=== PATIENT | male | born 1980 | race Caucasian/White ===

== ENCOUNTER 2017-06-25 15:56 | Outpatient (CLI) | payer OTHER | END 2017-06-25 15:57 | disposition home or self-care (01) | LOC: LABBT 15:56 | PROVIDERS: ATTEND Orthopaedic Surgery | DX: Z01.818 Encounter for other preprocedural examination (principal); S46.211A Strain of muscle, fascia and tendon of other parts of biceps, right arm, initial encounter ==

== ENCOUNTER → 2017-06-26 | Day surgery (SDC) | payer OTHER ==
[2017-06-25 16:20] VITALS: BMI 25.5
[~2017-06-26] MED LIST: Bupivacaine/Epinephrine 0.25% 30 ML VIAL ONE; CEFAZOLIN/Water 2 GM/20 ML SYRINGE ONE; Fentanyl 100 MCG/2 ML VIAL IV PRN; Fentanyl 100 MCG/2 ML VIAL ONE; HYDROcodone/Acetaminophen 5/325 mg Tablet PO PRN; Ketorolac Tromethamine 30 MG/ML VIAL IVP PRN; Lidocaine 1% (PF) 30 ML VIAL ONE; Meperidine HCl/PF 25 MG/ML VIAL ONE; Midazolam HCl 2 mg/2 ml Vial ONE; Ondansetron HCl/PF 4 MG/2 ML Vial IVP PRN; Promethazine HCl 25 MG/ML VIAL IM PRN; Ropivacaine 0.2% 550 ML 550 ML NERVE BLCK SCH; Zolpidem Tartrate 5 MG TAB PO PRN; traMADol HCl 50 MG TAB PO PRN
--- NOTE | 2017-06-26 14:27 | OP ---
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 POSTOPERATIVE DIAGNOSIS: Right shoulder degenerative superior labrum anterior and posterior tear wit h biceps instability. PROCEDURE PERFORMED: 1. Right shoulder arthroscopy with debridement and shaving of superior labral tear. 2. Open biceps tenodesis. SURGEON: Gold Blackwell M.D. SQUARE CUTTER: None. BLOOD LOSS: Minimal. COMPLICATIONS: None. ANESTHESIA: The patient did have a general anesthetic. He also had a preoperative block. IMPLANTS: Were 7 x 23 Ar[employer]rex Bio[employer]posite Bio-Tenodesis screw. CONDITION: He did go to the recovery room in stable condition. INDICATIONS: This is a 36-year-old active male, who has had symptoms and pain for nearly a year, off and on, in his right shoulder. MRI was not obtained and it was felt that he probably had a degenera tive SLAP tear, and at this time, options were talked about and he decided to go through diagnostic a rthroscopy and treatment as indicated. DESCRIPTION OF THE PROCEDURE: After appropriate consent forms were explained and signed, Azael was taken to the operating room, and at this time was given general anesthetic. Once the level of anesth esia was appropriate, he was rolled into the left lateral decubitus position with all bony prominence s well-padded. An axillary roll was placed underneath the left axilla, and the izaguirre bag was inflated to hold him in this position. The arm was then taken through full range of motion and was then susp ended with 15 pounds in standard arthroscopic fashion. The right shoulder and upper extremity were p repped and draped in the standard surgical fashion. Bony anatomic landmarks were drawn out and the s ubacromial space was infiltrated with Marcaine with epinephrine. Posterior portal was established an d the scope was placed into the shoulder joint. Anterior working portal was made using a needle-loca lization technique and diagnostic arthroscopy commenced. The articular surface of the humeral head a nd glenoid were in normal condition. Subscapularis was intact. The superior labrum was found to be degenerative and torn and unstable. Posterior and inferior labrum were intact. No loose bodies were noted in the axillary pouch. The rotator cuff insertion appeared to be intact. The biceps was able to be pulled out of the groove medially with a shaver, and at this time, it was decided that biceps tenodesis would be performed. An 18-gauge needle was used to place a suture through the biceps tendo n. We then used the arthroscopic scissors through the anterior portal to cut off the biceps from its superior labral insertion. Shaver and surface energy were used in debriding and coagulate the degen erative superior labrum and remnant of the biceps. Once this was done, the scope was removed and rep laced in the subacromial space. Lateral working portal was made. Copious bursa was removed from off the underlying rotator cuff. Soft tissue was removed from off the underside of the acromion, but no significant bony decompression was performed. At this time, we removed the scope. We then turned o ur attention to our open tenodesis. A 15-blade was used to incise down through skin. Bovie was used to coagulate any brisk venous bleeding. We then opened up our deltoid fascia sharply, dissected farhat n in line with the fibers to get to the underlying transverse humeral ligament. This was opened up, the biceps tendon pulled out any constrictions remaining, transverse humeral ligament was opened up s o that the biceps was completely free. We coagulated any brisk venous bleeding. We then sutured wit h a fiber loop followed by cutting off the intraarticular portion of the biceps tendon. We then plac ed our pin and used a 7-mm reamer to ream to a depth of 25 and placed and fixed our biceps tendon int o the hole in standard fashion. Again a 7 x 23 Bio[employer]posite Bio-Tenodesis screw was used for this. Sutures were tied over top of this and were then cut. We then thoroughly irrigated and dried our wou nd, which allowed our deltoid close upon itself. A running Vicryl was used to close our deltoid fasc ia, and 2-0 Vicryl and nylon sutures were used to close skin. A simple nylon stitches were then used to close the portals, and a bulky sterile dressing was applied. At this time, the patient was then awakened and taken to the recovery room in stable condition. All counts were correct at the end of t he case and he did receive preoperative IV antibiotics.
== END ==
LOC: SDC 08:17
PROVIDERS: ATTEND Orthopaedic Surgery
PROC: 0LS30ZZ Reposition Right Upper Arm Tendon, Open Approach (ICD-10-PCS; principal; 2017-06-26)
PROC: 0MM14ZZ Reattachment of Right Shoulder Bursa and Ligament, Percutaneous Endoscopic Approach (ICD-10-PCS; principal; 2017-06-26)
PROC: 0RHJ04Z Insertion of Internal Fixation Device into Right Shoulder Joint, Open Approach (ICD-10-PCS; principal; 2017-06-26)
DX: S43.401A Unspecified sprain of right shoulder joint, initial encounter (principal); S46.111A Strain of muscle, fascia and tendon of long head of biceps, right arm, initial encounter; Z88.6 Allergy status to analgesic agent; Z88.5 Allergy status to narcotic agent; Z90.49 Acquired absence of other specified parts of digestive tract; Z98.890 Other specified postprocedural states
CPT/HCPCS: 96374; A4306; C1713; J2001; J2175; J2250; J2795; J3010

== ENCOUNTER 2019-11-15 06:38 | Outpatient (CLI) | payer OTHER ==
[2019-11-15 18:04] LABS: SARS-CoV-2 MS2 Positive; SARS-CoV-2 N Gene Negative; SARS-CoV-2 S Gene Negative; SARS-CoV-2 orf1ab Negative
== END 2019-11-15 06:39 | disposition home or self-care (01) ==
LOC: LABBT 06:38
PROVIDERS: ATTEND Neurological Surgery
DX: Z01.812 Encounter for preprocedural laboratory examination (principal); Z11.59 Encounter for screening for other viral diseases; M54.12 Radiculopathy, cervical region
CPT/HCPCS: 87635; U0003

== ENCOUNTER 2019-11-18 06:23 | Day surgery (SDC) | payer OTHER ==
[2019-11-15 10:41] VITALS: BMI 26.5
--- NOTE | 2019-11-17 16:19 | HP ---
HISTORY OF PRESENT ILLNESS: Mr. Newton is a pleasant 38-year-old man presenting for evaluation of both neck pain and bilateral upper extremity C7 patterns of pain along with numbness. This has been present since March 2019. He reports some subjective weakness to the right upper extremity specifically. Pains are worsened when lifting heavier objects and turning and tilting his head in either direction. He has been evaluated and treated by Dr. Temple with two epidural steroid injections, second of which caused an adverse reaction, so they were stopped. He saw Dr. Burton who advocated for a Mobi-C disk replacement. He sees second opinion today. MRI from the [facility] reveals overall well appearing cervical spine. There is degenerative disk disease most significant at C3-4 and C6-7 specifically at C6-7 he has bilateral neuroforaminal narrowing. PHYSICAL EXAMINATION: On exam, he is alert and oriented x3. Gait is normal. No ataxia. Upper extremity motor exam is normal. He does have a positive Spurling maneuver bilaterally. PAST MEDICAL HISTORY: Significant for headaches, anxiety, tuberculosis, kidney stones. SURGICAL HISTORY: Bilateral knees, shoulders, left elbow unspecified, appendectomy, cholecystectomy. CURRENT MEDICATIONS: Pantoprazole. ASSESSMENT: Cervical radiculopathy. PLAN: Dr. Stoddard met with the patient, reviewed imaging, advocated for C6-C7 ACDF. He explained the patient risks, benefits, and alternatives to the procedure. The patient expressed understanding and elected to move forward with surgery as discussed. I do believe the patient is mentally competent and capable of making medical decisions for himself. We will move forward with surgery as planned. Job ID: [id number]
[2019-11-18] MEDS ORDERED: Midazolam HCl 2 mg/2 ml Vial ONE (08:01)
[2019-11-18] MEDS ORDERED: Fentanyl 100 MCG/2 ML VIAL ONE ×4 (08:50→11:26)
[2019-11-18] MEDS ORDERED: Tamsulosin HCl 0.4 MG CAP ONE (10:25)
[2019-11-18] MEDS ORDERED: Ondansetron PF 4 MG/2 ML Vial ONE ×2 (11:46→12:16)
[2019-11-18] MEDS ORDERED: Thrombin 5000 UNITS/5 ML VIAL ONE (12:02)
[2019-11-18] MEDS ORDERED: Rocuronium Bromide 10 MG/ML (10ML VIAL) ONE (12:16)
[2019-11-18] MEDS ORDERED: Lidocaine 1% PF 5 ML VIAL ONE ×2 (12:16)
[2019-11-18] MEDS ORDERED: Dexamethasone 20 MG/5 ML VIAL ONE (12:16)
[2019-11-18] MEDS ORDERED: PROPOFOL 200 MG/20 ML VIAL ONE (12:16)
[2019-11-18] MEDS ORDERED: Glycopyrrolate 0.2 MG/ML 5 ML SYRINGE ONE (12:16)
--- NOTE | 2019-11-18 17:16 | OP ---
DATE OF PROCEDURE: 11/18/2019 MATERIAL CONTROL MANAGER: James Phoenix PA-C. INDICATION: Pain. DIAGNOSIS: Cervical radiculopathy. PROCEDURE PERFORMED: Anterior cervical diskectomy and fusion, C6-C7. ANESTHESIA: General. DESCRIPTION OF PROCEDURE: The patient was brought into the operating room and placed under general anesthesia. He was placed on table in a supine position. A transverse incision was planned over the lateral aspect of the neck on the right. After prepping and draping and after an appropriate preoperative pause, the incision was created. The underlying platysma muscle was identified and a self-retaining retractor was placed. After confirming the appropriate level with C-arm fluoroscopy, an annulotomy was performed at C6-C7 disk space. All disk material as well as anterior and posterior osteophytes were removed. After completing the decompression, a 7-mm lordotic PEEK cage packed with allograft and autograft material was placed in the interbody space. An anterior cervical plate was then fashioned to the front of spine and secured with a total of 4 fixed screws. Midline and lateral structures were inspected and found to be free from significant trauma. The wound was irrigated. Hemostasis was maintained throughout. The wound was then closed in anatomic layers and a pressure dressing was applied. There were no known procedural complications. Job ID: [id number]
== END 2019-11-18 13:45 | disposition home or self-care (01) ==
LOC: SDC 06:23
PROVIDERS: ATTEND Neurological Surgery
PROC: 0RG10A0 Fusion of Cervical Vertebral Joint with Interbody Fusion Device, Anterior Approach, Anterior Column, Open Approach (ICD-10-PCS; principal; 2019-11-18)
PROC: 0RT30ZZ Resection of Cervical Vertebral Disc, Open Approach (ICD-10-PCS; principal; 2019-11-18)
DX: M54.12 Radiculopathy, cervical region (principal); F41.9 Anxiety disorder, unspecified; Z79.899 Other long term (current) drug therapy; Z88.5 Allergy status to narcotic agent
CPT/HCPCS: 76000; C1713; C1776; J0690; J1100; J2001; J2250; J2405; J2704; J3010

== ENCOUNTER 2025-02-08 15:19 | Observation (INO) | payer OTHER ==
[~2025-02-08 15:19] MED LIST changes: -Bupivacaine/Epinephrine 0.25% 30 ML VIAL ONE; -CEFAZOLIN/Water 2 GM/20 ML SYRINGE ONE; -Fentanyl 100 MCG/2 ML VIAL IV PRN; -Fentanyl 100 MCG/2 ML VIAL ONE; -HYDROcodone/Acetaminophen 5/325 mg Tablet PO PRN; +Iopamidol-370 76% 500 ML MDV (1 ML CHARGE) ONE; -Ketorolac Tromethamine 30 MG/ML VIAL IVP PRN; -Lidocaine 1% (PF) 30 ML VIAL ONE; -Meperidine HCl/PF 25 MG/ML VIAL ONE; -Midazolam HCl 2 mg/2 ml Vial ONE; -Ondansetron HCl/PF 4 MG/2 ML Vial IVP PRN; -Promethazine HCl 25 MG/ML VIAL IM PRN; -Ropivacaine 0.2% 550 ML 550 ML NERVE BLCK SCH; -Zolpidem Tartrate 5 MG TAB PO PRN; -traMADol HCl 50 MG TAB PO PRN
[2025-02-08 16:32] LABS: #Basophils 0.05 10x3/uL (0.0-0.2); #Eosinophils 0.18 10x3/uL (0.0-0.7); #Monocytes 0.43 10x3/uL (0.11-0.59); #Neutrophils 2.28 10x3/uL (1.40-6.50); %Basophils 1.0 % (0.0-1.0); %Eosinophils 3.5 % (0.0-10.0); %Lymphocytes 42.0 % (21.0-51.0); %Monocytes 8.4 % (0.0-10.0); %Neutrophils 44.7 % (42.0-75.0); Hematocrit 40.7 % (42.0-52.0); Hemoglobin 14.2 g/dL (14.0-18.0); Mean Corpuscular Hemoglobin 29.8 pg (27.0-31.0); Mean Corpuscular Volume 85.3 fL (78.0-98.0); Platelet Count 196 10x3/uL (130-400); Red Blood Cell (RBC) Count 4.77 mill/uL (4.70-6.10); White Blood Cell (WBC) Count 5.10 10x3/uL (4.8-10.8)
[2025-02-08 16:48] LABS: ALT (SGPT) 22 U/L (Less than 45); AST (SGOT) 23 U/L (11-34); Albumin 4.3 g/dL (3.1-4.5); Alkaline Phosphatase 54 U/L (40-110); Anion Gap 12 mmol/L (10-20); BUN (Urea Nitrogen) 11 mg/dL (8.9-20.6); Bilirubin, Total 0.4 mg/dL (0.3-1.2); Calc. Creatinine Clearance 0 mL/min (70-130); Calcium 8.5 mg/dL (7.8-10.44); Carbon Dioxide 24 mmol/L (22-29); Chloride 109 mmol/L (98-107); Globulin 2.3 g/dL (2.4-3.5); Glucose 102 mg/dL (70-105); Potassium 4.0 mmol/L (3.5-5.1); Sodium 141 mmol/L (136-145)
[2025-02-08 16:50] LABS: Troponin I Less than 0.010 ng/mL (< 0.028)
[2025-02-08 16:51] LABS: INR-International Normal Ratio 1.0; PTT 32.0 sec (22.9-36.1); Prothrombin Time 13.5 sec (12.0-14.7)
[2025-02-08] MEDS ORDERED: Aspirin Chewable 81 MG TAB ONE (16:54)
[2025-02-08] MEDS ORDERED: Ondansetron PF 4 MG/2 ML Vial IVP PRN (19:38)
[2025-02-08] MEDS ORDERED: hydrALAZINE 20 MG/ML VIAL SLOW IVP PRN (19:38)
[2025-02-08 19:41] LABS: Magnesium 2.1 mg/dL (1.6-2.6)
[2025-02-08 19:42] LABS: Acetaminophen Less than 10 mcg/mL (Less than 10); Salicylate Less than 8.0 mg/dL (Less than 8.0)
[2025-02-08 19:44] LABS: Troponin I Less than 0.010 ng/mL (< 0.028)
[2025-02-08 21:24] VITALS: BMI 26.0
[2025-02-08 23:07] LABS: Troponin I Less than 0.010 ng/mL (< 0.028)
[2025-02-09 03:50] LABS: #Basophils 0.04 10x3/uL (0.0-0.2); #Eosinophils 0.19 10x3/uL (0.0-0.7); #Monocytes 0.46 10x3/uL (0.11-0.59); #Neutrophils 2.16 10x3/uL (1.40-6.50); %Basophils 0.8 % (0.0-1.0); %Eosinophils 3.6 % (0.0-10.0); %Lymphocytes 45.1 % (21.0-51.0); %Monocytes 8.8 % (0.0-10.0); %Neutrophils 41.3 % (42.0-75.0); Hematocrit 40.4 % (42.0-52.0); Hemoglobin 14.0 g/dL (14.0-18.0); Mean Corpuscular Hemoglobin 29.9 pg (27.0-31.0); Mean Corpuscular Volume 86.3 fL (78.0-98.0); Platelet Count 193 10x3/uL (130-400); Red Blood Cell (RBC) Count 4.68 mill/uL (4.70-6.10); White Blood Cell (WBC) Count 5.23 10x3/uL (4.8-10.8)
[2025-02-09 04:05] LABS: Anion Gap 12 mmol/L (10-20); BUN (Urea Nitrogen) 11 mg/dL (8.9-20.6); Calc. Creatinine Clearance 0 mL/min (70-130); Calcium 8.3 mg/dL (7.8-10.44); Carbon Dioxide 26 mmol/L (22-29); Cardiac Risk 4.9 (Less than 4.5); Chloride 108 mmol/L (98-107); Cholesterol 133 mg/dl (< 200 Desired); Glucose 112 mg/dL (70-105); HDL Cholesterol 27 mg/dL (>60 Neg Risk); LDL Cholesterol, Calculated 79 mg/dL; Potassium 3.5 mmol/L (3.5-5.1); Sodium 142 mmol/L (136-145); Triglycerides 135 mg/dL (Less than 150)
[2025-02-09 07:47] VITALS: TEMP 97.7
[2025-02-09] MEDS: Acetaminophen 325 MG TAB PO PRN (09:07)
[2025-02-09] MEDS: Pantoprazole 40 MG DR.TAB PO SCH (09:07)
[2025-02-09] MEDS: Aspirin 81 mg Enteric Coated Tablet PO SCH (09:07)
[2025-02-09 14:09] VITALS: BP 137/81
== END 2025-02-09 15:18 | disposition home or self-care (01) ==
LOC: ERS 15:19 → 2SE 18:54
PROVIDERS: ADMIT Family Medicine; ATTEND Emergency Medicine
DX: G45.9 Transient cerebral ischemic attack, unspecified (principal); F41.9 Anxiety disorder, unspecified; F43.10 Post-traumatic stress disorder, unspecified; Z90.49 Acquired absence of other specified parts of digestive tract
CPT/HCPCS: 36415; 36416; 70450; 70496; 70498; 70551; 71045; 80048; 80053; 80061; 80307; 83735; 84484; 85025; 85610; 85730; 93005; 93010; 94760; Q9967

== ENCOUNTER 2025-05-12 07:04 | Day surgery (SDC) | payer OTHER ==
[2025-05-11 10:33] VITALS: BMI 26.5
[2025-05-12] MEDS ORDERED: fentaNYL PF 100 MCG/2 ML SYRINGE ONE ×3 (07:46→10:49)
[2025-05-12] MEDS ORDERED: Lidocaine 1% PF 5 ML VIAL ONE (07:46)
[2025-05-12] MEDS ORDERED: Ondansetron PF 4 MG/2 ML Vial ONE (07:46)
[2025-05-12] MEDS ORDERED: Famotidine/PF 20 mg/2ml Vial ONE (08:28)
[2025-05-12] MEDS ORDERED: CEFAZOLIN 2 GM VIAL ONE ×2 (08:29→13:48)
[2025-05-12] MEDS ORDERED: Thrombin 5000 UNITS/5 ML VIAL ONE (08:38)
[2025-05-12] MEDS ORDERED: Lidocaine 2% 6 ML (Jelly) SYR ONE (08:47)
[2025-05-12] MEDS ORDERED: SUGAMMADEX SODIUM 200 MG/2 ML VIAL ONE (08:53)
[2025-05-12] MEDS ORDERED: PROPOFOL 200 MG/20 ML VIAL ONE (09:10)
[2025-05-12] MEDS ORDERED: Rocuronium Bromide 10 MG/ML (10ML VIAL) ONE (09:10)
[2025-05-12] MEDS ORDERED: PHENYLEPHRINE-NS 100 MCG/ML 10 ML SYRINGE ONE (09:30)
[2025-05-12] MEDS ORDERED: HYDROmorphone 0.5 MG/0.5 ML SYRINGE ONE (10:49)
[2025-05-12] MEDS ORDERED: HYDROcodone/Acetaminophen 5/325 mg Tablet ONE (14:42)
== END 2025-05-12 14:57 | disposition home or self-care (01) ==
LOC: SDC 07:04
PROVIDERS: ATTEND Neurological Surgery
PROC: 0RG10A0 Fusion of Cervical Vertebral Joint with Interbody Fusion Device, Anterior Approach, Anterior Column, Open Approach (ICD-10-PCS; principal; 2025-05-12)
PROC: 0RG1071 Fusion of Cervical Vertebral Joint with Autologous Tissue Substitute, Posterior Approach, Posterior Column, Open Approach (ICD-10-PCS; principal; 2025-05-12)
DX: M54.12 Radiculopathy, cervical region (principal); I10 Essential (primary) hypertension; E78.5 Hyperlipidemia, unspecified; Z86.73 Personal history of transient ischemic attack (TIA), and cerebral infarction without residual deficits; Z90.49 Acquired absence of other specified parts of digestive tract; Z98.890 Other specified postprocedural states; Z79.899 Other long term (current) drug therapy
CPT/HCPCS: C1713; C1889; J1100; J1171; J1308; J2250; J2405; J2704

== ENCOUNTER 2025-06-28 00:25 | Observation (INO) | payer OTHER ==
[2025-06-28 00:59] VITALS: BMI 26.2
[2025-06-28] MEDS ORDERED: Acetaminophen 325 MG TAB PO PRN (01:47)
[2025-06-28] MEDS ORDERED: Melatonin 3 MG TAB PO PRN ×2 (01:47→01:54)
[2025-06-28] MEDS ORDERED: Gabapentin 300 MG CAP PO PRN (03:06)
[2025-06-28 04:54] LABS: Anion Gap 10 mmol/L (10-20); BUN (Urea Nitrogen) 8 mg/dL (8.9-20.6); Calc. Creatinine Clearance 148 mL/min (70-130); Calcium 9.1 mg/dL (7.8-10.44); Carbon Dioxide 26 mmol/L (22-29); Cardiac Risk 7.3 (Less than 4.5); Chloride 108 mmol/L (98-107); Cholesterol 198 mg/dl (< 200 Desired); Glucose 146 mg/dL (70-105); HDL Cholesterol 27 mg/dL (>60 Neg Risk); LDL Cholesterol, Calculated 137 mg/dL; Magnesium 2.2 mg/dL (1.6-2.6); Potassium 3.4 mmol/L (3.5-5.1); Sodium 141 mmol/L (136-145); Triglycerides 169 mg/dL (Less than 150)
[2025-06-28] MEDS: Pantoprazole 40 MG DR.TAB PO SCH (09:23)
[2025-06-28 12:18] VITALS: BP 125/77; TEMP 98.3
== END 2025-06-28 14:00 | disposition home or self-care (01) ==
LOC: 2NO 00:30
PROVIDERS: ADMIT Internal Medicine; ATTEND Hospitalist
DX: I49.9 Cardiac arrhythmia, unspecified (principal); I10 Essential (primary) hypertension; M54.12 Radiculopathy, cervical region; E78.5 Hyperlipidemia, unspecified; F41.9 Anxiety disorder, unspecified; K21.9 Gastro-esophageal reflux disease without esophagitis; Z86.73 Personal history of transient ischemic attack (TIA), and cerebral infarction without residual deficits; Z90.49 Acquired absence of other specified parts of digestive tract; Z79.82 Long term (current) use of aspirin; Z79.899 Other long term (current) drug therapy
CPT/HCPCS: 36415; 80048; 80061; 83735; 84443